=== PATIENT | male | born 1980 | race African-American/Black ===

== ENCOUNTER 2018-04-01 15:44 | Emergency (ER) | payer SELFPAY ==
[2018-04-01] MEDS ORDERED: FLUORESCEIN 1MG EYE STRIP. OU (16:00)
[2018-04-01] MEDS: FLUORESCEIN OPHTH TEST STRIP. OU (16:14)
[2018-04-01] MEDS: TETRACAINE 0.5% OPHTH SOLUTION 4ML BOTTLE. OU (16:14)
== END 2018-04-01 16:47 | disposition home or self-care (01) ==
LOC: ER 15:44
DX: H10.212 Acute toxic conjunctivitis, left eye (principal); T50.995A Adverse effect of other drugs, medicaments and biological substances, initial encounter; F17.200 Nicotine dependence, unspecified, uncomplicated; Y92.89 Other specified places as the place of occurrence of the external cause
CPT/HCPCS: 99283